=== PATIENT | male | born 1995 | race Caucasian/White ===

== ENCOUNTER 2017-04-12 16:41 | Emergency (ER) | payer BC ==
[~2017-04-12] VITALS: Ht 182.9 cm; Wt 84.1 kg
[2017-04-12 16:47] VITALS: BP 124/58; TEMP 98.1
[2017-04-12 18:45] VITALS: PULSE 86
== END 2017-04-12 18:58 | disposition home or self-care (01) ==
LOC: COL.ER 16:41
DX: S60.221A Contusion of right hand, initial encounter (principal); W22.8XXA Striking against or struck by other objects, initial encounter; Y93.71 Activity, boxing; Y92.39 Other specified sports and athletic area as the place of occurrence of the external cause